=== PATIENT | male | born 1955 | race Caucasian/White ===

== ENCOUNTER → 2022-12-29 10:05 | Outpatient (BNVA) | payer SELFPAY | PROVIDERS: Visit Provider Dermatology | DX: Z01.89 Encounter for other specified special examinations (principal) ==

== ENCOUNTER → 2023-06-29 11:21 | Outpatient (BNVA) | payer SELFPAY | PROVIDERS: Visit Provider Dermatology | DX: Z01.89 Encounter for other specified special examinations (principal) ==

== ENCOUNTER 2023-10-18 20:47 | Emergency (ER) | payer OTHER, MEDICARE, SELFPAY ==
[2023-10-18 20:50] VITALS: BP 159/52; PULSE 63; RESP 14; TEMP 37.3; O2SAT 98; BMI 27.1
--- NOTE | 2023-10-18 21:05 | USR_ITS ---
PROCEDURE INFORMATION: Exam: US Duplex Right Upper Extremity Arteries Exam date and time: 10/18/2023 9:38 PM Age: 68 years old Clinical indication: Other: Fell 2 weeks ago, blunt trauma only, striking right arm. Now notices a pulsatile lump at the distal right upper arm near antecubital space. ; Additional info: Poss aneurysm TECHNIQUE: Imaging protocol: Right Real-time ultrasound scan of the arteries of the right upper extremity with 2-D waggoner scale, color Doppler flow and spectral waveform analysis. COMPARISON: No relevant prior studies available. FINDINGS: Right subclavian artery: No occlusion or significant stenosis. Normal waveform. Right axillary artery: No occlusion or significant stenosis. Normal waveform. Right brachial artery: No occlusion or significant stenosis. Normal waveform. Note is made that the pulsatile mass noted by the patient is the brachial artery. No aneurysm. Right radial artery: No occlusion or significant stenosis. Normal waveform. Right ulnar artery: No occlusion or significant stenosis. Normal waveform. Soft tissues: No soft tissue fluid collection. No pseudoaneurysm. No AV fistula. US/[place] [address] IMPRESSION: 1. No acute findings. 2. The pulsatile mass indicated by the patient is the brachial artery. The artery is just below the skin surface. No aneurysm. No AV fistula.
[2023-10-18 21:06] VITALS: BP 130/93; PULSE 68; RESP 16; O2SAT 97
--- NOTE | 2023-10-18 21:06 | W.ED.EXTPRO ---
HPI - Extremity Problem General: Chief complaint: Extremity Problem,Nontraumatic Stated complaint: right arm nodule, doc called ahead Time Seen by Provider: 10/18/23 20:58 Source: patient Mode of arrival: ambulatory Limitations: no limitations History of Present Illness: 68-year-old male states he had a fall 2 weeks ago he states that since then he has had a lump he has noticed in his right AC right arm. States it is pulsatile he saw his physician and sent him here for an ultrasound to rule out a DVT or dissection he denies any pain denies any loss sensation. Associated symptoms: Deny chest pain, fever(s) or rash Review of Systems Const: Denies: fever(s), chills, body aches or change in appetite ENMT: Denies: throat pain or dental pain Card: Denies: chest pain Resp: Denies: dyspnea GI: Denies: abdominal pain, nausea, vomiting or diarrhea Musc: Reports: extremity pain; Denies: neck pain or back pain Skin/Breast: Denies: rash Neuro: Denies: headache(s) Physical Exam Const: COMMON NORMALS: no acute distress, patient oriented x3 and healthy appearing HENMT: COMMON NORMALS: normocephalic and atraumatic HEAD & SCALP: normocephalic and atraumatic Neck/C-Spine: COMMON NORMALS: full ROM and supple Chest: COMMONS NORMALS: normal inspection of the chest Resp: COMMON NORMALS: normal respiratory effort Cardio: COMMON NORMALS: regular rate, regular rhythm and No murmurs present (Cardio) RATE: regular rate RHYTHM: regular rhythm Extremity: COMMON NORMALS: full ROM NARRATIVE EXTREMITY EXAM: Palpable mass noted in the right AC that is pulsatile Neuro: COMMON NORMALS: patient oriented x3, moves all extremities and no focal motor deficits Psych: COMMON NORMALS: mental status grossly normal, Normal thought process present and cooperative THOUGHT PROCESS: Normal thought process present Skin: COMMON NORMALS: no rashes or lesions noted and no wounds GENERAL SKIN EXAM: no rashes or lesions noted Course Vital Signs: Vital signs: Vital Signs Temperature 99.2 F 10/18/23 20:50 Pulse Rate 68 10/18/23 21:06 Respiratory Rate 16 10/18/23 21:06 Blood Pressure 130/93 10/18/23 21:06 Pulse Oximetry 97 10/18/23 21:06 Oxygen Delivery Me thod Room Air 10/18/23 21:06 MDM - Extremity (Nontraumatic) Medical Decision Making Patient presents here concerns to a pulsatile mass in his arm. Ultrasound here showed no abnormalities patient actually had eloped and never spoke to the nurse or myself. Medical Records I reviewed the patient's medical records. Lab Data I reviewed the patient's lab results. 10/18/23 21:13 10/18/23 21:13 Radiology Impressions Duplex Scan Upper Extremity Artery 10/18/23 21:05 IMPRESSION: 1. No acute findings. 2. The pulsatile mass indicated by the patient is the brachial artery. The artery is just below the skin surface. No aneurysm. No AV fistula. Laboratory Results WBC 5.59 10^3/uL (3.29-11.43) 10/18/23 21:13 RBC 4.56 10^6/uL (3.85-5.65) 10/18/23 21:13 Hgb 13.90 g/dL (11.27-16.99) 10/18/23 21:13 Hct 43.6 % (37-53) 10/18/23 21:13 MCV 95.6 fl (82-101) 10/18/23 21:13 MCH 30.5 pg (27-33) 10/18/23 21:13 MCHC 31.9 g/dL (30-55) 10/18/23 21:13 RDW 12.6 % (12.1-15.1) 10/18/23 21:13 Plt Count 141 10^3/cmm (157-399) L 10/18/23 21:13 MPV 10.4 fL (7.4-10.4) 10/18/23 21:13 Neut % (Auto) 62.3 % 10/18/23 21:13 Lymph % (Auto) 27.7 % 10/18/23 21:13 [place] % (Auto) 8.9 % 10/18/23 21:13 Eos % (Auto) 0.5 % 10/18/23 21:13 Baso % (Auto) 0.4 % 10/18/23 21:13 Neut # (Auto) 3.48 10^3/uL (1.8-7.7) 10/18/23 21:13 Lymph # (Auto) 1.6 10^3/uL (0.8-4.8) 10/18/23 21:13 [place] # (Auto) 0.5 10^3/uL (0.2-0.9) 10/18/23 21:13 Eos # (Auto) 0.0 10^3/uL (0.0-0.8) 10/18/23 21:13 Baso # (Auto) 0.0 10^3/uL (0.0-0.1) 10/18/23 21:13 Nucleated RBC % (auto) 0 % 10/18/23 21:13 Nucleated RBCs # 0.0 /100WBC 10/18/23 21:13 Sodium 139 mmol/L (136-145) 10/18/23 21:13 Potassium 4.6 mmol/L (3.5-5.1) 10/18/23 21:13 Chloride 104 mmol/L (98-107) 10/18/23 21:13 Carbon Dioxide 26 mmol/L (22-29) 10/18/23 21:13 Anion Gap 13.6 (5-19) 10/18/23 21:13 BUN 17 mg/dL (8-23) 10/18/23 21:13 Creatinine 0.7 mg/dL (0.7-1.2) 10/18/23 21:13 GFR Calculation 112.1 mL/min (90-130) 10/18/23 21:13 Glucose 94 mg/dL (65-115) 10/18/23 21:13 Calculated Osmolality 289 mOsm/kg (285-295) 10/18/23 21:13 Calcium 9.2 mg/dL (8.5-10.5) 10/18/23 21:13 All radiology interpretation(s) finalized by discharge Discharge Plan Discharge Patient Disposition: Left Against Medical Advice Clinical Impression: Arm pain, left Condition: Stable Coding Level of Care Code ED Pharmacy Resident for Bharat Perkins
[2023-10-18 21:19] LABS: Basophils % 0.4 %; Eosinophils % 0.5 %; Hematocrit 43.6 % (37-53); Lymphocytes # 1.6 10^3/uL (0.8-4.8); Lymphocytes % 27.7 %; Mean Corpuscular HGB Conc 31.9 g/dL (30-55); Mean Corpuscular Hemoglobin 30.5 pg (27-33); Mean Corpuscular Volume 95.6 fl (82-101); Mean Platelet Volume 10.4 fL (7.4-10.4); Monocytes # 0.5 10^3/uL (0.2-0.9); Monocytes % 8.9 %; Neutrophils # 3.48 10^3/uL (1.8-7.7); Neutrophils % 62.3 %; Nucleated Red Blood Cells % 0 %; Platelet Count 141 10^3/cmm (157-399); Red Blood Count 4.56 10^6/uL (3.85-5.65); Red Cell Distribution Width 12.6 % (12.1-15.1); White Blood Count 5.59 10^3/uL (3.29-11.43)
[2023-10-18 21:38] LABS: Anion Gap 13.6 (5-19); Blood Urea Nitrogen 17 mg/dL (8-23); Calcium 9.2 mg/dL (8.5-10.5); Carbon Dioxide 26 mmol/L (22-29); Chloride 104 mmol/L (98-107); Glomerular Filtration Rate 112.1 mL/min (90-130); Glucose 94 mg/dL (65-115); Osmolality Calculated 289 mOsm/kg (285-295); Potassium 4.6 mmol/L (3.5-5.1); Sodium 139 mmol/L (136-145)
== END 2023-10-18 23:22 | disposition left against medical advice (07) ==
PROVIDERS: Emergency Provider Emergency Medicine
DX: M79.601 Pain in right arm (principal); Z53.29 Procedure and treatment not carried out because of patient's decision for other reasons; R22.31 Localized swelling, mass and lump, right upper limb
CPT/HCPCS: 80048; 85025; 93931; 99284